=== PATIENT | female | born 1945 | race Caucasian/White ===

== ENCOUNTER 2023-10-13 03:29 | Inpatient (IN) | payer MEDICARE ==
[2023-10-13] VITALS (14 sets, daily range): BP systolic 101–126; BP diastolic 60–78; PULSE 86–107; RESP 12–18; TEMP 96.4–97.6; O2SAT 90–98
[~2023-10-13] VITALS: Ht 170.2 cm; Wt 71.4 kg
[2023-10-13] MEDS ORDERED: LEVO100C4 PO (04:06)
[2023-10-13] MEDS ORDERED: SUMA100T16 PO (04:06)
[2023-10-13] MEDS ORDERED: PROP10TA10 PO (04:06)
[2023-10-13] MEDS ORDERED: NORT10CA81 PO (04:06)
[2023-10-13] MEDS ORDERED: LOSA-416 PO (04:06)
[2023-10-13] MEDS ORDERED: OMEP10CA5 PO (04:06)
[2023-10-13] MEDS ORDERED: HYDROcodone/acetaminophen 10/325mg tab PO PRN (04:10)
[2023-10-13] MEDS ORDERED: magnesium 4gm in 100ml NS 100 ML IV PRN (04:10)
[2023-10-13] MEDS ORDERED: magnesium 2GM in 50ml NS 50 ML IV PRN (04:10)
[2023-10-13] MEDS ORDERED: magnesium hydroxide 30ml (MOM) UD suspension PO PRN (04:10)
[2023-10-13] MEDS ORDERED: mag hydrox/Alum hydrox/simeth 30ml oral suspension PO PRN (04:10)
[2023-10-13] MEDS ORDERED: HYDROcodone/acetaminophen 5mg/325mg tablet PO PRN (04:10)
[2023-10-13] MEDS ORDERED: potassium Cl 20 mEq SR tablet PO PRN ×2 (04:10)
[2023-10-13] MEDS ORDERED: ondansetron/PF 4mg/2ml inj IV PRN (04:10)
[2023-10-13] MEDS ORDERED: heparin 10,000 units/1 ML INJ IV PRN (04:10)
[2023-10-13] MEDS ORDERED: potassium Cl 40MEQ/1/2NS 520ml 520 ML IV PRN (04:10)
[2023-10-13] MEDS ORDERED: morphine 2 MG/ML inj. syringe IV PRN ×2 (04:10)
[2023-10-13] MEDS ORDERED: acetaminophen 325mg tablet PO PRN ×2 (04:10)
[2023-10-13] MEDS ORDERED: magnesium Cl slow-release 64mg tablet PO PRN (04:10)
[2023-10-13] MEDS: ondansetron/PF 4mg/2ml inj IV ONE (04:50)
[2023-10-13 05:10] LABS: BASOPHILS # (AUTO) 0.1 X10'3 (0-0.2); BASOPHILS % (AUTO) 0.5 % (0-1); EOSINOPHILS # (AUTO) 0.1 X10'3 (0-0.9); EOSINOPHILS % (AUTO) 0.6 % (0-6); HEMATOCRIT 47.5 % (35.0-45.0); LYMPHOCYTES # (AUTO) 1.7 X10'3 (1.1-4.8); LYMPHOCYTES % (AUTO) 15.5 % (21-51); MEAN CORPUSCULAR HEMOGLOBIN 32.9 PG (27.0-31.0); MEAN CORPUSCULAR HGB CONC 33.6 g/dL (33.0-36.5); MEAN CORPUSCULAR VOLUME 97.9 FL (78-98); MEAN PLATELET VOLUME 7.9 FL (7.4-10.4); MONOCYTES # (AUTO) 0.7 X10'3 (0-0.9); MONOCYTES % (AUTO) 6.4 % (2-12); NEUTROPHILS # (AUTO) 8.4 X10'3 (1.8-7.7); PLATELET COUNT 313 X10'3 (140-440); RED BLOOD COUNT 4.85 X10'6 (4.20-5.60); RED CELL DISTRIBUTION WIDTH 12.9 % (11.5-14.5); WHITE BLOOD COUNT 10.8 X10'3 (4.5-11.0)
[2023-10-13 05:21] LABS: APTT 35 SECONDS (22-32); PROTHROMBIN TIME 10.9 SECONDS (9.0-12.0)
[2023-10-13] MEDS: heparin 10,000 units/1 ML INJ IV ONE (05:44)
[2023-10-13] MEDS: heparin 25,000 UNIT/250ml bag 250 ML IV PRN (05:47)
[2023-10-13] MEDS: normal saline 1000ml 1,000 ML IV SCH ×2 (06:29→13:45)
[2023-10-13] MEDS: docusate sod 100mg capsule PO SCH (08:00)
[2023-10-13] MEDS ORDERED: fentaNYL/PF 50MCG/1 ML 2ML syringe ONE (11:52)
[2023-10-13] MEDS ORDERED: midazolam 1 mg/ML 2ml injection ONE (11:52)
[2023-10-13] MEDS ORDERED: verapamil 2.5 mg/ml inj IV ONE (11:52)
[2023-10-13] MEDS ORDERED: nitroGLYCERIN 500mcg/5mL D5W 5 ML IV ONE (11:53)
[2023-10-13] MEDS ORDERED: iohexol 350MG/ML 100ml bottle IV ONE (11:53)
[2023-10-13] MEDS ORDERED: iohexol 350 MG/ML 50ML vial IV ONE (11:53)
[2023-10-13] MEDS ORDERED: heparin 1,000unit/ml 10ml vial 10 ML ONE (11:53)
[2023-10-13] MEDS ORDERED: LIDOcaine 1% (10mg/ml) 2ml vial ONE (12:21)
[2023-10-13] MEDS: carVEDilol 3.125mg tablet PO SCH (20:33)
[2023-10-14 02:55] VITALS: BP 99/56; PULSE 92; RESP 18; TEMP 97.9; O2SAT 93
[2023-10-14 07:00] VITALS: BP 107/59; PULSE 84; RESP 15; TEMP 98.4; O2SAT 92
[2023-10-14 07:43] LABS: BASOPHILS # (AUTO) 0.1 X10'3 (0-0.2); EOSINOPHILS # (AUTO) 0.1 X10'3 (0-0.9); EOSINOPHILS % (AUTO) 1.4 % (0-6); HEMATOCRIT 41.4 % (35.0-45.0); HEMOGLOBIN 13.9 g/dl (12.0-16.0); LYMPHOCYTES # (AUTO) 1.8 X10'3 (1.1-4.8); LYMPHOCYTES % (AUTO) 23.1 % (21-51); MEAN CORPUSCULAR HEMOGLOBIN 32.9 PG (27.0-31.0); MEAN CORPUSCULAR HGB CONC 33.6 g/dL (33.0-36.5); MEAN CORPUSCULAR VOLUME 97.9 FL (78-98); MEAN PLATELET VOLUME 8.3 FL (7.4-10.4); MONOCYTES # (AUTO) 0.8 X10'3 (0-0.9); MONOCYTES % (AUTO) 9.7 % (2-12); NEUTROPHILS # (AUTO) 5.2 X10'3 (1.8-7.7); NEUTROPHILS % (AUTO) 64.8 % (42-75); PLATELET COUNT 258 X10'3 (140-440); RED BLOOD COUNT 4.23 X10'6 (4.20-5.60); RED CELL DISTRIBUTION WIDTH 13.3 % (11.5-14.5)
[2023-10-14 08:00] VITALS: RESP 15; O2SAT 92
[2023-10-14 08:10] LABS: ALANINE AMINOTRANSFERASE 19 U/L (12-78); ALBUMIN 2.7 G/DL (3.4-5.0); ALKALINE PHOSPHATASE 82 IU/L (46-116); ANION GAP 7 (8-16); ASPARTATE AMINO TRANSFERASE 30 U/L (10-37); BILIRUBIN,TOTAL 0.5 MG/DL (0.1-1.0); BLOOD UREA NITROGEN 18 MG/DL (7-18); BUN/CREATININE RATIO 21.2 (10.0-20.0); CALCIUM 7.5 MG/DL (8.5-10.1); CHLORIDE 112 MMOL/L (99-107); CHOL/HDL RATIO 2.9 (0.00-4.99); CHOLESTEROL 188 MG/DL (0-200); CREATININE 0.85 MG/DL (0.40-0.90); GLUCOSE 93 MG/DL (70-104); HDL CHOLESTEROL 64 MG/DL (35-60); POTASSIUM 3.9 MMOL/L (3.5-5.1); SODIUM 143 MMOL/L (135-145); TOTAL CARBON DIOXIDE 23.9 MMOL/L (24-32); TOTAL PROTEIN 5.5 G/DL (6.4-8.2); TRIGLYCERIDES 105 MG/DL (20-135); eCRCL 55 ML/MIN; eGFR 65 ML/MIN
[2023-10-14 08:42] LABS: LDL CHOLESTEROL 98 MG/DL (50-100)
[2023-10-14] MEDS: losartan 25mg tablet PO SCH (09:03)
[2023-10-14] MEDS ORDERED: COR3.125T PO (10:47)
[2023-10-14] MEDS ORDERED: ATOR20TA66 PO (10:47)
[2023-10-14] MEDS ORDERED: ASPI-1265 PO (10:47)
[2023-10-14] MEDS ORDERED: SPIR25TA PO (10:47)
[2023-10-14] MEDS ORDERED: EMPA10TA PO (10:47)
[2023-10-14 11:00] VITALS: BP 100/57; PULSE 87; RESP 17; TEMP 97; O2SAT 93
[2023-10-14 11:05] VITALS: BP_SYST 107; PULSE 84
[2023-10-14] MEDS: spironolactone 25 MG tablet PO SCH (11:05)
[2023-10-14 11:15] LABS: PRO BRAIN NATRIURETIC PEPTIDE 6959 PG/ML (0-450)
== END 2023-10-14 13:17 | disposition home or self-care (01) | DRG 282 ==
LOC: ER 03:30 → ED HOLD 04:12 → PCU 3S 07:05
PROVIDERS: ADMIT Internal Medicine; ATTEND Internal Medicine
PROC: 4A023N7 Measurement of Cardiac Sampling and Pressure, Left Heart, Percutaneous Approach (ICD-10-PCS; principal; 2023-10-13)
PROC: B2111ZZ Fluoroscopy of Multiple Coronary Arteries using Low Osmolar Contrast (ICD-10-PCS; 2023-10-13)
PROC: B2151ZZ Fluoroscopy of Left Heart using Low Osmolar Contrast (ICD-10-PCS; 2023-10-13)
PROC: 4A02XM4 Measurement of Cardiac Total Activity, External Approach (ICD-10-PCS; 2023-10-13)
PROC: 3E073KZ Introduction of Other Diagnostic Substance into Coronary Artery, Percutaneous Approach (ICD-10-PCS; 2023-10-13)
DX: I51.81 Takotsubo syndrome (principal); I21.A1 Myocardial infarction type 2; E03.9 Hypothyroidism, unspecified; K21.9 Gastro-esophageal reflux disease without esophagitis; I25.10 Atherosclerotic heart disease of native coronary artery without angina pectoris; E78.5 Hyperlipidemia, unspecified; Z20.822 Contact with and (suspected) exposure to COVID-19; Z85.3 Personal history of malignant neoplasm of breast; Z86.718 Personal history of other venous thrombosis and embolism; Z80.9 Family history of malignant neoplasm, unspecified; Z63.4 Disappearance and death of family member; Z79.899 Other long term (current) drug therapy
CPT/HCPCS: 78451; 80053; 80061; 83880; 84484; 85610; 85730; 87811; 93005; 93458; 99285; A9500; J3490; Q9967; 36415; 76937; 85025; 87081; 93306; 99152; 99153; A6258; A6402; C1725; C1894; G0378; J1644; J2250; J2405; J3010; J7030